=== PATIENT | male | born 1950 | race African-American/Black ===

== ENCOUNTER 2021-06-24 13:26 | Emergency (ER) | payer OTHER, MEDICAID, SELFPAY ==
[~2021-06-24] VITALS: Ht 167.6 cm; Wt 83.9 kg
[~2021-06-24 13:26] MED LIST: ASPI-1155 PO; ATOR10TA68 PO; CHOL100034 PO; DOCU-144 PO; GLU500 PO; LISI2.5T48 PO; RISP0.5T5 PO; SYN50 PO
[2021-06-24 13:50] VITALS: BP_SYST 148
--- NOTE | 2021-06-24 14:00 | NUR ---
Patient to ER bed tent1 to gown for evaluation. Side rails up.
--- NOTE | 2021-06-24 14:06 | NUR ---
ER at bedside examining patient.
[2021-06-24] MEDS ORDERED: ONDANSETRON HCL 4 MG/2 ML VIAL IVP ONE (14:15)
[2021-06-24] MEDS ORDERED: FAMOTIDINE PF 20 MG/2 ML VIAL IVP ONE (14:15)
--- NOTE | 2021-06-24 14:40 | NUR ---
Pt to bed 8 for evaluation. Pt gowned and positioned to comfort.
[2021-06-24] MEDS ORDERED: FAMOTIDINE 20 MG TABLET PO ONE (14:45)
[2021-06-24] MEDS ORDERED: ONDANSETRON 4 MG ODT TAB PO ONE (14:45)
[2021-06-24 15:21] LABS: BILIRUBIN,URINE NEGATIVE (NEGATIVE); BLOOD, URINE NEGATIVE (NEGATIVE); CLARITY/URINE CLEAR (CLEAR); COLOR,URINE YELLOW (YELLOW); GLUCOSE,URINE 2+ (NEGATIVE); KETONES,URINE TRACE (NEGATIVE); LEUKOCYTE ESTERASE ,URINE NEGATIVE (NEGATIVE); NITRITE, URINE NEGATIVE (NEGATIVE); PROTEIN URINE NEGATIVE (NEGATIVE); UROBILINOGEN,URINE 0.2 (0.2-1.0)
[2021-06-24 15:26] LABS: BASOPHILS # (AUTO) 0.1 K/uL (0.0-0.2); BASOPHILS % (AUTO) 0.7 % (0.0-2.0); EOSINOPHILS # (AUTO) 0.3 K/uL (0.0-0.4); EOSINOPHILS % (AUTO) 3.2 % (0.0-4.0); HEMATOCRIT 47.5 % (36-54); HEMOGLOBIN 16.1 g/dL (14.0-18.0); LYMPHOCYTES # (AUTO) 0.6 K/uL (1.0-5.5); LYMPHOCYTES % (AUTO) 6.3 % (20.5-51.5); MEAN CORPUSCULAR HEMOGLOBIN 31 pg (27-31); MEAN CORPUSCULAR HGB CONC 34 % (32-36); MEAN CORPUSCULAR VOLUME 90 fL (79.0-98.0); MONOCYTES # (AUTO) 0.2 K/uL (0.0-1.0); MONOCYTES % (AUTO) 2.5 % (1.7-9.3); NEUTROPHILS # (AUTO) 8.6 K/uL (1.8-7.7); NEUTROPHILS % (AUTO) 87.3 % (40.0-70.0); PLATELET COUNT (AUTO) 304 K/uL (130-430); RED BLOOD CELL COUNT(AUTO) 5.28 MIL/uL (4.2-6.2); RED CELL DISTRIBUTION WIDTH 14.5 % (9.0-15.0); WHITE BLOOD COUNT (AUTO) 9.8 K/uL (4.8-10.8)
[2021-06-24 16:06] LABS: ANION GAP 11 (5-15); CALCIUM 9.6 mg/dL (8.4-11.0); CHLORIDE 106 mmol/L (98-107); CREATININE 1.23 mg/dL (0.55-1.30); GLUCOSE 114 mg/dL (70-99); SODIUM SERUM 144 mmol/L (136-145); UREA NITROGEN, BLOOD 26 mg/dL (8-21)
[2021-06-24 16:24] LABS: GFR AFRICAN AMERICAN 75 mL/min (>90)
[2021-06-24 16:26] LABS: ALANINE AMINOTRANSFERASE 43 U/L (12-78); ALBUMIN 4.4 g/dL (3.4-4.8); ASPARTATE AMINOTRANSFERASE 20 U/L (10-37); LIPASE 71 U/L (73-393); TOTAL BILIRUBIN 0.5 mg/dL (0.0-1.0)
[2021-06-24] MEDS ORDERED: FAMO20TA8 PO (16:56)
[2021-06-24] MEDS ORDERED: ONDA-8 TL (16:56)
--- NOTE | 2021-06-24 17:08 | NUR ---
Patient given written and verbal discharge instructions and verbalizes understanding. ER MD discussed with patient the results and treatment provided. Patient in stable condition. ID arm band removed. IV catheter removed intact and dressing applied, no active bleeding. Rx of pepcid and zofran given. Patient educated on pain management and to follow up with PMD. Pain Scale 0/10 Opportunity for questions provided and answered. Medication side effect fact sheet provided.
[2021-06-24 17:09] VITALS: BP_SYST 132
== END 2021-06-24 17:08 | disposition home or self-care (01) ==
LOC: SED 13:26
DX: A08.4 Viral intestinal infection, unspecified (principal); I10 Essential (primary) hypertension; E11.9 Type 2 diabetes mellitus without complications; Z79.899 Other long term (current) drug therapy; Z79.84 Long term (current) use of oral hypoglycemic drugs; Z20.822 Contact with and (suspected) exposure to COVID-19
CPT/HCPCS: 80053; 81003; 83690; 84484; 85025; 93005; 99284; C9803; Q0162; U0003